=== PATIENT | male | born 1940 | race Caucasian/White ===

== ENCOUNTER 2023-04-26 15:30 | Emergency (ER) | payer MEDICARE, MEDICAID ==
[~2023-04-26] VITALS: Ht 175.3 cm; Wt 78.0 kg
[2023-04-26 15:42] VITALS: BP 96/70; PULSE 76; RESP 17; TEMP 97.6; O2SAT 96
[2023-04-26 20:19] LABS: BASOPHILS % 0.4 % (0.0-2.0); EOSINOPHILS % 1.8 % (0.0-5.0); HEMATOCRIT. 37.9 % (42.0-52.0); HEMOGLOBIN. 12.1 g/dL (14.0-18.0); LYMPHOCYTES % 11.3 % (20.0-50.0); MEAN CORPUSCULAR HEMOGLOBIN 28.9 pg (28.0-32.0); MEAN CORPUSCULAR VOLUME 90.2 fL (80.0-94.0); MEAN PLATELET VOLUME 8.6 fl (7.4-10.4); MONOCYTES % 6.9 % (2.0-8.0); NEUTROPHILS % 79.6 % (40.0-76.0); PLATELET 348 x1000/uL (130-400); RED CELL DISTRIBUTION WIDTH 14.2 % (11.6-14.6); WHITE BLOOD COUNT 10.5 x1000/uL (4.5-11.0)
[2023-04-26 20:35] LABS: ALANINE AMINOTRANSFERASE 10 IU/L (10-49); ASPARTATE AMINOTRANSFERASE 14 IU/L (<34); BILIRUBIN TOTAL 0.6 mg/dL (0.1-1.0); CALCIUM 9.3 mg/dL (8.7-10.4); CARBON DIOXIDE 24 mEq/L (21-32); CHLORIDE 105 mEq/L (98-107); CREATININE 1.4 mg/dL (0.6-1.3); GLUCOSE 107 mg/dL (70-105); POTASSIUM 3.4 mEq/L (3.5-5.1); PROTEIN TOTAL 7.5 g/dL (6.0-8.3); SODIUM 138 mEq/L (136-145); UREA NITROGEN BLOOD 28 mg/dL (9-23)
[2023-04-26] MEDS ORDERED: AMOX1TAB16 MT (22:41)
[2023-04-26] MEDS ORDERED: P50 MT (22:41)
== END 2023-04-26 22:58 | disposition home or self-care (01) ==
LOC: ER 15:30
DX: J01.90 Acute sinusitis, unspecified (principal); I10 Essential (primary) hypertension; Z86.73 Personal history of transient ischemic attack (TIA), and cerebral infarction without residual deficits
CPT/HCPCS: 36415; 71045; 80053; 85025; 99284